=== PATIENT | female | born 1960 ===

== ENCOUNTER → 2023-11-02 | Outpatient (CLI) | payer MEDICARE, OTHER ==
[~2023-11-02] VITALS: Ht 154.9 cm; Wt 54.0 kg
[~2023-11-02] MED LIST: AZEL137S8 NASAL; FAMO20 PO; LISI-893 PO; MONT-35 PO; OMEP20 PO; SIMV-260 PO
[2023-11-02 10:14] VITALS: BP 115/77; PULSE 76; RESP 18; TEMP 97.8; O2SAT 100
== END | disposition home or self-care (01) ==
LOC: SRCNTR 09:56
PROVIDERS: ATTEND Internal Medicine
DX: R05.9 Cough, unspecified (principal); R06.02 Shortness of breath; K21.9 Gastro-esophageal reflux disease without esophagitis; M06.9 Rheumatoid arthritis, unspecified
CPT/HCPCS: G0463; Z7500

== ENCOUNTER → 2024-03-14 | Outpatient (CLI) | payer MEDICARE, OTHER ==
[~2024-03-14] VITALS: Ht 154.9 cm; Wt 55.0 kg
[2024-03-14 09:35] VITALS: BP 137/86; PULSE 71; RESP 18; TEMP 97.6; O2SAT 100
== END | disposition home or self-care (01) ==
LOC: SRCNTR 09:17
PROVIDERS: ATTEND Internal Medicine
DX: R05.9 Cough, unspecified (principal); K21.9 Gastro-esophageal reflux disease without esophagitis; J45.909 Unspecified asthma, uncomplicated; R09.82 Postnasal drip
CPT/HCPCS: G0463; Z7500